=== PATIENT | male | born 1995 | race Caucasian/White ===

== ENCOUNTER → 2021-06-15 15:35 | Outpatient (BNVA) | payer OTHER, SELFPAY | PROVIDERS: PCP Physician Assistant Medical; Visit Provider Nurse Practitioner Family | DX: R39.9 Unspecified symptoms and signs involving the genitourinary system (principal); A64 Unspecified sexually transmitted disease; R35.0 Frequency of micturition; Z71.1 Person with feared health complaint in whom no diagnosis is made | CPT/HCPCS: 36416; 81000; 82962; 87491; 87591; 87661 ==